=== PATIENT | male | born 1950 | race Caucasian/White ===

== ENCOUNTER 2024-02-17 08:54 | Outpatient (RCR) | payer BC, SELFPAY | END 2024-02-17 23:59 | disposition home or self-care (01) | LOC: RPT 08:54 | PROVIDERS: ATTENDING PHYSICIAN Physician Assistant Medical | DX: R26.89 Other abnormalities of gait and mobility (principal); Z73.6 Limitation of activities due to disability; M62.81 Muscle weakness (generalized) | CPT/HCPCS: 97110; 97112; 97162; 97530 ==

== ENCOUNTER 2024-03-09 08:58 | Outpatient (RCR) | payer BC, SELFPAY | END 2024-03-09 23:59 | disposition home or self-care (01) | LOC: RPT 08:58 | PROVIDERS: ATTENDING PHYSICIAN Physician Assistant Medical | DX: R26.89 Other abnormalities of gait and mobility (principal); Z73.6 Limitation of activities due to disability; M62.81 Muscle weakness (generalized) | CPT/HCPCS: 97112; 97530 ==

== ENCOUNTER 2024-04-13 08:23 | Outpatient (RCR) | payer BC, SELFPAY | END 2024-04-13 12:47 | disposition home or self-care (01) | LOC: RPT 08:23 | PROVIDERS: ATTENDING PHYSICIAN Physician Assistant Medical | DX: R26.89 Other abnormalities of gait and mobility (principal); Z73.6 Limitation of activities due to disability; M62.81 Muscle weakness (generalized) | CPT/HCPCS: 97112; 97530 ==

== ENCOUNTER → 2024-06-06 08:23 | Outpatient (REF) | payer BC, SELFPAY | LOC: RCS 08:23 | PROVIDERS: ATTENDING PHYSICIAN Nuclear Medicine Nuclear Cardiology; FAMILY PHYSICIAN Physician Assistant Medical | DX: I48.0 Paroxysmal atrial fibrillation (principal); I25.10 Atherosclerotic heart disease of native coronary artery without angina pectoris | CPT/HCPCS: 93306 ==

== ENCOUNTER 2024-11-07 18:22 | Emergency (ER) | payer BC, SELFPAY ==
[2024-11-07 18:26] VITALS: BP 128/69
[2024-11-07 18:45] LABS: Hematocrit 43.1 % (39.0-52.0); Hemoglobin 15.8 g/dL (13.0-18.0); Mean Corp Hgb Conc. 36.7 g/dL (33.0-37.0); Mean Corpuscular Volume 89.8 fL (80.0-94.0); Nucleated Red Blood Cells % 0 % (-); Platelet Count 196 10^3/uL (130-400); Red Cell Dist. Width 12.3 % (11.5-14.5)
[2024-11-07 19:16] LABS: ALT (SGPT) 15 U/L (0-50); AST (SGOT) 18 U/L (17-59); Albumin 4.6 g/dl (3.5-5.0); Alkaline Phosphatase 25 U/L (38-126); Blood Urea Nitrogen 28 mg/dl (9-20); Calcium 9.8 mg/dl (8.4-10.2); Carbon Dioxide 20 mmol/L (22-30); Chloride 111 mmol/L (98-107); Glucose 145 mg/dl (70-99); Potassium 4.5 mmol/L (3.5-5.1); Sodium 139 mmol/L (135-145); Total Protein 7.1 g/dl (6.3-8.2); eGFR 58.73
[2024-11-07 19:29] LABS: Troponin I 0.015 ng/ml
[2024-11-07 20:26] VITALS: BP 129/84
[2024-11-07 20:34] VITALS: BMI 19.8
[2024-11-07 21:00] VITALS: BP 132/81
--- NOTE | 2024-11-07 21:16 | ED.GENMED ---
History of Present Illness
General
Chief Complaint: Heart Rate Problem
Time Seen by Provider: 11/07/24 21:16
History of Present Illness
History of Present Illness:
TIME OF INITIAL EVALUATION
- 9:20 PM
REVIEW OF OLD RECORDS
- The patient has a history of atrial fibrillation on Xarelto and also has a history of CAD. The patient had a MISSY cardioversion in [address] Guadarrama. Echo from this past May showed normal EF.
Note:
CHIEF COMPLAINT(S)
Dizziness and irregular heartbeat.
HISTORY OF PRESENT ILLNESS
The patient is a 73-year-old male presenting with dizziness that has persisted for a few days. He reports an irregular heartbeat sensation without associated pain, which he likens to his previous episodes of atrial fibrillation. In the past, when
experiencing atrial fibrillation, he noted his heart racing significantly; however, this time the rhythm has not been particularly fast. He was previously cardioverted for atrial fibrillation a year or two ago. The patient admits to missing one dose
of his anticoagulant medication, Rivaroxaban (Xarelto), within the last five days. He has a past medical history of stroke, which was identified retrospectively via MRI, though he was asymptomatic at the time.
ADDITIONAL HISTORY OBTAINED FROM SOURCES OTHER THAN THE PATIENT
Information regarding the patients medication was partly confirmed through the spouse, who helped identify that he is currently taking Carvedilol, but has run out of Sotalol, which is used to manage his atrial fibrillation.
EXTERNAL RECORDS REVIEWED
According to previous records, the patient has had atrial fibrillation and was cardioverted by Dr. Ratliff one or two years ago.
CHRONIC MEDICAL CONDITIONS SIGNIFICANTLY AFFECTING CARE
- Atrial Fibrillation
- History of Stroke
MEDICATIONS
- Rivaroxaban (Xarelto) - recently missed one dose.
- Carvedilol - taken twice daily.
- Sotalol - currently out of this medication.
REVIEW OF SYSTEMS
- Cardiovascular: Reports irregular heartbeat, similar to prior atrial fibrillation episodes but not as rapid.
- Neurological: Reports dizziness over the past several days.
PHYSICAL EXAM
General: Alert, no acute distress.
Skin: Warm, dry.
Head: Normocephalic, atraumatic.
Neck: Supple, trachea midline.
Eye Ears, nose, mouth and throat: Oral mucosa moist.
Cardiovascular: Normal peripheral perfusion, No edema, irregular rhythm but normal rate.
Respiratory: Respirations are non-labored.
Gastrointestinal: Abdomen nondistended.
Back: Normal range of motion, Normal alignment.
Musculoskeletal: Normal ROM, normal strength.
Neurological: Alert and oriented to person, place, time, and situation, No focal neurological deficit observed.
Psychiatric: Cooperative, appropriate mood & affect.
PLAN
- The patient will be discussed with the cardiology group to determine the necessity and timing of a transesophageal echocardiogram (MISSY) prior to potential cardioversion.
- Review and possibly adjust medications, particularly in relation to the patients missed doses of Sotalol and Rivaroxaban.
DIFFERENTIAL DIAGNOSIS
The Differential Diagnosis includes, in no particular order and is not limited to:
- Atrial Fibrillation
- Dehydration
- Stroke
- Transient Ischemic Attack
- Side effects of medication
- Hypotension
- Vasovagal syncope
- Cardiac arrhythmia other than atrial fibrillation
- Anemia
- Vestibular disorders
Disposition:
SUMMARY OF ENCOUNTER
The patient, a 73-year-old male with a history of atrial fibrillation, presented with dizziness and irregular heartbeat. It was determined that he is in atrial fibrillation but with stable vital signs. The decision was made to defer cardioversion as
immediate intervention was not necessary and could pose more harm than benefit. The patient was advised to continue his current medications, which include Rivaroxaban and Carvedilol (as opposed to Metoprolol which was previously, but incorrectly,
noted in his records). The patient was instructed to follow up with his varnishing unit operator for further management, including the resumption of Sotalol.
PLAN
The patient is to contact his cardiologists office the following day to schedule an appointment for further evaluation and resumption of Sotalol. He should continue taking Rivaroxaban and Carvedilol as prescribed.
FOLLOW-UP INSTRUCTIONS
The patient should call the cardiologists office immediately to schedule a follow-up visit to discuss medication management and the potential resumption of Sotalol.
MEDICATION RECONCILIATION
- Rivaroxaban (continue as prescribed)
- Carvedilol (continue as prescribed)
MEDICAL DECISION MAKING
- Number and Complexity of Problems Addressed: Chronic conditions affecting care include atrial fibrillation and a history of stroke. Differential diagnosis considerations include dehydration, cardiac arrhythmia other than atrial fibrillation, and
hypotension.
- Data:
Category 1: I reviewed the patients outpatient pharmacy records and confirmed current medication use.
Clinical information was obtained from the patient and partly from an independent historian, the patients spouse.
Category 3: Discussion of management with Dr. Martinez, a varnishing unit operator, about ongoing treatment and need for follow-up care.
DIAGNOSIS
- Atrial Fibrillation, ICD-10: I48.0
- History of Stroke, Asymptomatic, ICD-10: I63.9
EKG
- Suspect atrial fibrillation, ventricular rate of 96
LABS
- CBC unremarkable, bicarb slightly low at 20, troponin 0.015
UPDATE
- I discussed case with Dr. Low. He recommends that the patient follows up with their office as an outpatient. They will likely resume sotalol at that time. I have offered to resume the sotalol now however Dr. Low once his office to evaluate
him first. Although the patient stated that he was on Coreg based on his medication list that he has, Dr. Low indicates that he has been taking metoprolol 37.5 mg daily. Patient states that he has been taking the beta-kori.
Past History
Past History
ED Past Medical History: Arrthythmia (AFib), CAD, CVA (Cerebellar stroke), Hypercholesterolemia and NIDDM
ED Past Surgical History: Cardiac
Social History
Tobacco: Non-smoker
Personal:
Living: with family
Employment: Employed
Phy Exam
Physical Exam
Physical Exam:
See HPI
Course
Orders/Labs/Results
Orders:
Orders
11/07/24 18:23
EKG [Electrocardiogram (*1)] Urgent
Reason for Study: Vertigo / Dizzy
EKG- Treatment ONCE
11/07/24 18:37
Complete Blood Count/With Diff Urgent
Comprehensive Metabolic Panel Urgent
Troponin I Urgent
Abnormal Lab Results
11/07/24
18:37
MCH 32.9 H pg
(27.0-31.0)
Abs Immat Gran (auto) 0.1 H 10^3/uL
(0-0.05)
Absolute Monos (auto) 0.8 H 10^3/uL
(0.1-0.6)
Immature Gran % 0.9 H %
(0-0.5)
Monocytes % 9.6 H %
(1.7-9.3)
Eosinophils % 9.5 H %
(0-6)
Chloride 111 H mmol/L
(98-107)
Carbon Dioxide 20 L mmol/L
(22-30)
BUN 28 H mg/dl
(9-20)
Glucose 145 H mg/dl
(70-99)
Alkaline Phosphatase 25 L U/L
(38-126)
11/07/24 18:37
11/07/24 18:37
Vital Signs
Initial and Last Documented VS:
Initial Vital Signs
Temp Pulse Resp BP Pulse Ox
36.5 C 62 16 128/69 100
11/07/24 18:26 11/07/24 18:26 11/07/24 18:26 11/07/24 18:26 11/07/24 18:26
Last Documented Vital Signs
Temp Pulse Resp BP Pulse Ox
36.5 C 62 16 128/69 100
11/07/24 18:26 11/07/24 18:26 11/07/24 18:26 11/07/24 18:26 11/07/24 21:16
*Pulse Oximetry
SaO2: 100
Oxygen Mode of Delivery: Room air
Patient hypoxic: no
*Critical Care Note
Total Time (30-74mins, 75-104mins- exclusive of procedures): Not Applicable
ED Attending Note
-
Portions of this chart may have been created with voice recognition software.� Occasional wrong word or��sound alike� substitutions may have occurred due to the inherent limitations of voice recognition software.
Discharge Plan
Departure
Prescriptions:
No Action
Janumet 1 EACH tablet
1 ea PO BID
sotalol 80 MG tablet
80 mg PO BID
Xarelto 20 MG tablet
20 mg PO QPM
valacyclovir 1 gram Tablet
1,000 mg PO TID
metoprolol succinate 25 mg Tablet Extended Release 24 Hr
37.5 mg PO DAILY
Jardiance 25 mg Tablet
25 mg PO DAILY
cefdinir 300 mg capsule
300 mg PO BID Qty: 14 0RF
meclizine 25 mg tablet
25 mg PO BID PRN (Reason: dizziness) Qty: 14 0RF
Referrals:
[facility] PA-C [Family Provider, Family Practice]
Interventions
Interventions:
*Risk Screen - Suicide Last Done: 11/07/24 18:30
*Neglect/Abuse Screening Last Done: 11/07/24 18:30
*ED- Fall Risk Assessment Last Done: 11/07/24 20:44
*ED COVID-19 Vaccine History Last Done: 11/07/24 20:44
ED- Pulmonary Assessment Last Done: 11/07/24 20:34
ED- Cardiac Assessment Last Done: 11/07/24 20:34
Discharge Date and Time
Print Language: TAMAZIGHT
[2024-11-07 22:00] VITALS: BP 133/90
== END 2024-11-07 22:23 | disposition home or self-care (01) ==
LOC: EMR 18:22
PROVIDERS: Emergency Medicine; EMERGENCY PHYSICIAN Emergency Medicine; FAMILY PHYSICIAN Physician Assistant Medical
DX: I48.91 Unspecified atrial fibrillation (principal); E11.9 Type 2 diabetes mellitus without complications; E78.00 Pure hypercholesterolemia, unspecified; I25.10 Atherosclerotic heart disease of native coronary artery without angina pectoris; Z79.01 Long term (current) use of anticoagulants; Z86.73 Personal history of transient ischemic attack (TIA), and cerebral infarction without residual deficits; Z79.899 Other long term (current) drug therapy
CPT/HCPCS: 99284; 80053; 84484; 85025; 93005